=== PATIENT | female | born 1955 | race Caucasian/White ===

== ENCOUNTER 2021-11-02 22:20 | Inpatient (IN) | payer MEDICARE, OTHER ==
[2021-11-02] MEDS ORDERED: Ondansetron 4 MG/2 ML SDV IVPUSH PRN (22:46)
[2021-11-02] MEDS: Dextrose 5%-0.9% NaCl 1,000 ML IV SCH (23:04)
[2021-11-03] MEDS: LORazepam 2 MG/ML SDV IV PRN ×2 (04:09→21:20)
[2021-11-03] MEDS: Dextrose 5%-0.9% NaCl 1,000 ML IV SCH (05:40)
[2021-11-03] MEDS ORDERED: Potassium Chloride 20 MEQ Tab.ER PO ONE (06:50)
[2021-11-03] MEDS ORDERED: Desmopressin 4 MCG/1 ML Amp SUBCUT ONE (11:30)
[2021-11-03] MEDS ORDERED: Calcium Carbonate 500 MG Tab.Chew PO ONE (20:32)
[2021-11-03] MEDS ORDERED: Calcium Carbonate 500 MG Tab.Chew PO PRN ×2 (22:15→22:29)
[2021-11-04] MEDS ORDERED: Magnesium Sulfate/Water 2 GM in Premix Bag 1 BAG IV ONE (07:17)
[2021-11-04] MEDS ORDERED: Sodium Chloride 0.9% 1,000 ML IV SCH (07:30)
[2021-11-04] MEDS ORDERED: Potassium Phosphates 30 MMOLE in Sodium Chloride 0.9% 500 ML IV SCH (08:00)
[2021-11-04] MEDS: Aspirin 81 MG Tab.EC PO SCH (08:00)
[2021-11-04] MEDS: Thyroid 60 MG Tab PO SCH (08:00)
[2021-11-05] MEDS: Thyroid 60 MG Tab PO SCH (08:35)
[2021-11-05] MEDS: Aspirin 81 MG Tab.EC PO SCH (08:35)
[2021-11-05] MEDS ORDERED: Lisinopril 20 MG Tab PO SCH (09:00)
[2021-11-05] MEDS ORDERED: Acetaminophen 325 MG Tab PO PRN (09:04)
== END 2021-11-05 14:00 | disposition home or self-care (01) | DRG 641 ==
LOC: JD.ICU 22:20
PROVIDERS: ADMIT Pediatrics; ATTEND Internal Medicine
DX: E87.1 Hypo-osmolality and hyponatremia (principal); R44.3 Hallucinations, unspecified; E46 Unspecified protein-calorie malnutrition; E86.0 Dehydration; I25.10 Atherosclerotic heart disease of native coronary artery without angina pectoris; Z20.822 Contact with and (suspected) exposure to COVID-19; I10 Essential (primary) hypertension; H54.7 Unspecified visual loss; E78.5 Hyperlipidemia, unspecified; E03.9 Hypothyroidism, unspecified; E66.9 Obesity, unspecified; E78.00 Pure hypercholesterolemia, unspecified; Z79.82 Long term (current) use of aspirin; Z79.899 Other long term (current) drug therapy; Z87.891 Personal history of nicotine dependence; Z91.09 Other allergy status, other than to drugs and biological substances; Z68.31 Body mass index [BMI] 31.0-31.9, adult
CPT/HCPCS: 36415; 80048; 80053; 81001; 82533; 83735; 83880; 83930; 83935; 84100; 84300; 84443; 85025; 86140; 97110-GO; 97112-GP; 97116-GP; 97162-GP; 97166-GO; 97530-GO; 97535-GO; A9270-GY; J2060; J2597; J3411; J3475; J3490; J7030; J7040; J7042; U0002